=== PATIENT | female | born 1955 | race American Indian/Alaskan Native ===

== ENCOUNTER 2017-12-08 17:54 | Emergency (ER) | payer BC ==
[2017-12-08 17:54] VITALS: BMI 32.9
[2017-12-08 18:22] VITALS: TEMP 99
[2017-12-08] MEDS ORDERED: Levalbuterol 1.25 MG/3 ML Inhal Soln UD IH STA (19:41)
[2017-12-08] MEDS ORDERED: Sodium Chloride 0.9% 1,000 ML IV STA (20:33)
[2017-12-08 21:07] LABS: BASO # 0.03 K/mm3 (0.0-2.0); BASO % 0.3 % (0.0-3.0); EOS # 0.1 (0.0-0.7); EOS % 0.9 % (1.5-5.0); GRAN # 5.66 (1.4-6.5); GRAN % 63.1 % (50.0-68.0); HEMOGLOBIN 12.8 g/dL (12.0-16.0); LYMPH # 2.7 (1.2-3.4); MEAN CELL VOLUME 89.7 fl (80.0-105.0); MEAN CORPUSCULAR HEMOGLOBIN 29.8 pg (25.0-35.0); MEAN CORPUSCULAR HGB CONC 33.2 g/dl (31.0-37.0); MEAN PLATELET VOLUME 8.8 fl (7.0-11.0); MONO # 0.5 (0.1-0.6); MONO % 5.7 % (1.0-6.0); RBC 4.29 10^6/uL (3.5-6.1); RED CELL DISTRIBUTION WIDTH 14.2 % (11.5-14.5)
[2017-12-08 21:13] LABS: ALB/GLOB RATIO 1.4 (1.1-1.8); ALBUMIN 4.3 g/dL (3.0-4.8); ALT/SGPT 51 U/L (7-56); AST/SGOT 42 U/L (14-36); BLOOD UREA NITROGEN 8 mg/dL (7-21); CALCIUM 9.5 mg/dL (8.4-10.5); GFR AFRICAN-AMERICAN > 60; GFR NON-AFRICAN AMERICAN > 60
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
[2017-12-08] MEDS ORDERED: Iohexol 350 MG/100 ML VIAL ONE (22:22)
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
[2017-12-08 23:27] VITALS: BP 144/78; PULSE 78; RESP 18; O2SAT 98
--- NOTE | 2017-12-09 09:42 | RAD ---
HISTORY: cough/fever COMPARISON: 02/14/2016. December 08, 2017. CT thorax for pulmonary embolism TECHNIQUE: Chest PA and lateral FINDINGS: LUNGS: No active pulmonary disease. PLEURA: No significant pleural effusion identified. No pneumothorax apparent. CARDIOVASCULAR: Normal. OSSEOUS STRUCTURES: No significant abnormalities. VISUALIZED UPPER ABDOMEN: Normal. OTHER FINDINGS: Multiple radiopaque foreign bodies within the left breasts. IMPRESSION: No active disease. No significant interval change compared to the prior examination(s).
== END 2017-12-08 23:26 | disposition home or self-care (01) ==
LOC: ED 17:54
DX: J11.1 Influenza due to unidentified influenza virus with other respiratory manifestations (principal); I10 Essential (primary) hypertension
CPT/HCPCS: 71046; 71275; 80053; 85025; 87804; 94640; 96360; 99284; J7040; Q9967

== ENCOUNTER 2018-08-15 12:31 | Emergency (ER) | payer BC ==
[2018-08-15 12:31] VITALS: BMI 32.9
[2018-08-15 12:52] VITALS: TEMP 98
[2018-08-15] MEDS ORDERED: Sodium Chloride 0.9% 1,000 ML IV STA (13:10)
[2018-08-15] MEDS ORDERED: Lidocaine 5% Patch TD STA (13:10)
[2018-08-15 13:16] LABS: PH,URINE 6.5 (4.7-8.0); URINE BILIRUBIN NEGATIVE (NEGATIVE); URINE BLOOD NEGATIVE (NEGATIVE); URINE GLUCOSE (UA) NEGATIVE (NEGATIVE); URINE LEUKOCYTE ESTERASE SMALL Leu/uL (NEGATIVE); URINE PROTEIN NEGATIVE mg/dL (<30 mg/dL); URINE UROBILINOGEN 0.2 E.U./dL (<1 E.U./dL)
[2018-08-15 13:18] LABS: URINE APPEARANCE SL CLOUDY (CLEAR); URINE COLOR YELLOW (YELLOW)
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
[2018-08-15 13:24] LABS: URINE BACTERIA TRACE (NEG); URINE RBC NEGATIVE /hpf (0-2)
[2018-08-15 13:28] LABS: BASO # 0.03 K/mm3 (0.0-2.0); BASO % 0.2 % (0.0-3.0); EOS # 0.1 (0.0-0.7); EOS % 0.7 % (1.5-5.0); GRAN # 7.74 (1.4-6.5); GRAN % 61.6 % (50.0-68.0); HEMOGLOBIN 12.4 g/dL (12.0-16.0); LYMPH # 3.7 (1.2-3.4); LYMPH % 29.5 % (22.0-35.0); MEAN CELL VOLUME 88.5 fl (80.0-105.0); MEAN CORPUSCULAR HEMOGLOBIN 29.1 pg (25.0-35.0); MEAN CORPUSCULAR HGB CONC 32.9 g/dl (31.0-37.0); MEAN PLATELET VOLUME 8.4 fl (7.0-11.0); RBC 4.26 10^6/uL (3.5-6.1); WHITE BLOOD COUNT 12.6 10^3/ul (4.5-11.0)
[2018-08-15 13:37] LABS: ALB/GLOB RATIO 1.3 (1.1-1.8); ALBUMIN 4.2 g/dL (3.0-4.8); ALT/SGPT 25 U/L (7-56); AST/SGOT 29 U/L (14-36); BLOOD UREA NITROGEN 10 mg/dL (7-21); CALCIUM 9.4 mg/dL (8.4-10.5); GFR NON-AFRICAN AMERICAN > 60
[2018-08-15 14:20] VITALS: RESP 18
[2018-08-15 15:25] VITALS: BP 137/80; PULSE 76; O2SAT 100
--- NOTE | 2018-08-15 15:45 | CT ---
Date of service: 08/15/2018 PROCEDURE: CT Abdomen and Pelvis without intravenous contrast HISTORY: Left low back pain, r/o kidney stone COMPARISON: None. TECHNIQUE: Technique. Contrast dose: Radiation dose: Total exam DLP = 869.93 mGy-cm. This CT exam was performed using one or more of the following dose reduction techniques: Automated exposure control, adjustment of the mA and/or kV according to patient size, and/or use of iterative reconstruction technique. FINDINGS: LOWER THORAX: Unremarkable. LIVER: Unremarkable. No gross lesion or ductal dilatation. GALLBLADDER AND BILE DUCTS: Unremarkable. PANCREAS: Unremarkable. No gross lesion or ductal dilatation. SPLEEN: Unremarkable. ADRENALS: Unremarkable. No mass. KIDNEYS AND URETERS: Unremarkable. No hydronephrosis. No solid mass. Nonobstructing stone in the right kidney. No evidence of ureteral stone. Phleboliths in the pelvis VASCULATURE: Unremarkable. No aortic aneurysm. BOWEL: Unremarkable. No obstruction. No gross mural thickening. APPENDIX: Unremarkable. Normal appendix. PERITONEUM: Unremarkable. No free fluid. No free air. LYMPH NODES: Unremarkable. No enlarged lymph nodes. BLADDER: Unremarkable. REPRODUCTIVE: Unremarkable. BONES: No acute fracture. OTHER FINDINGS: None. IMPRESSION: No evidence of urolithiasis. No acute findings
== END 2018-08-15 15:31 | disposition home or self-care (01) ==
LOC: ED 12:31
DX: M54.40 Lumbago with sciatica, unspecified side (principal)
CPT/HCPCS: 74176; 80053; 81001; 85025; 87086; 96361; 96374; 99285; J1885; J7030

== ENCOUNTER 2018-09-17 18:53 | Emergency (ER) | payer BC ==
[2018-09-17] MEDS ORDERED: Oxycodone/Acetaminophen 5/325 mg Tab PO STA (19:32)
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
[2018-09-18 01:04] VITALS: BP 146/82; PULSE 72; RESP 18; TEMP 98.1; O2SAT 100; BMI 33.0
== END 2018-09-17 20:28 | disposition home or self-care (01) ==
LOC: ED 18:53
DX: B02.9 Zoster without complications (principal)

== ENCOUNTER 2019-03-28 08:31 | Observation (INO) | payer BC ==
[2019-03-28] MEDS ORDERED: Morphine 2 mg/ml ISec IVP STA ×2 (09:04→20:09)
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
[2019-03-28] MEDS: Lidocaine 5% Patch TD SCH (09:34)
[2019-03-28] MEDS ORDERED: Morphine 4 mg/ml ISec IVP STA (10:23)
[2019-03-28 13:39] LABS: ALB/GLOB RATIO 1.4 (1.1-1.8); ALBUMIN 4.3 g/dL (3.0-4.8); ALT/SGPT 28 U/L (7-56); AST/SGOT 23 U/L (14-36); BLOOD UREA NITROGEN 14 mg/dL (7-21); CALCIUM 9.3 mg/dL (8.4-10.5); GFR NON-AFRICAN AMERICAN > 60
[2019-03-28 13:44] LABS: BASO # 0.02 K/mm3 (0.0-2.0); BASO % 0.2 % (0.0-3.0); EOS # 0.1 (0.0-0.7); EOS % 0.8 % (1.5-5.0); LYMPH # 3.6 (1.2-3.4); LYMPH % 42.1 % (22.0-35.0); MEAN CELL VOLUME 88.2 fl (80.0-105.0); MEAN CORPUSCULAR HGB CONC 32.8 g/dl (31.0-37.0); MEAN PLATELET VOLUME 8.6 fl (7.0-11.0); MONO # 0.3 (0.1-0.6); MONO % 3.8 % (1.0-6.0); RBC 4.49 10^6/uL (3.5-6.1); RED CELL DISTRIBUTION WIDTH 13.6 % (11.5-14.5); WHITE BLOOD COUNT 8.6 10^3/uL (4.5-11.0)
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
[2019-03-28 20:34] LABS: PH,URINE 6.5 (4.7-8.0); URINE BILIRUBIN NEGATIVE (NEGATIVE); URINE BLOOD SMALL (NEGATIVE); URINE GLUCOSE (UA) NEGATIVE (NEGATIVE); URINE LEUKOCYTE ESTERASE NEGATIVE Leu/uL (NEGATIVE); URINE PROTEIN NEGATIVE mg/dL (<30 mg/dL); URINE UROBILINOGEN 0.2 E.U./dL (<1 E.U./dL)
[2019-03-28 20:36] LABS: URINE APPEARANCE CLEAR (CLEAR); URINE COLOR YELLOW (YELLOW)
[2019-03-28 20:37] LABS: URINE RBC 15 - 20 /hpf (0-2)
[2019-03-28 20:38] LABS: URINE AMORPHOUS SEDIMENT TRACE /hpf; URINE BACTERIA TRACE /hpf
[2019-03-28 21:23] VITALS: BMI 34.1
[2019-03-28] MEDS ORDERED: Pneumococcal 23-Valent Vaccine IM ONE (21:23)
[2019-03-29] MEDS ORDERED: Morphine 2 mg/ml ISec IVP STA ×2 (03:13→05:55)
[2019-03-29] MEDS ORDERED: POLYETHYLENE GLYCOL 3350 17 GM/Dose PACKET PO ONE (05:56)
[2019-03-29] MEDS ORDERED: Pantoprazole 40 mg EC Tab PO SCH (06:00)
[2019-03-29 07:26] LABS: HEMOGLOBIN 12.1 g/dL (12.0-16.0); MEAN CELL VOLUME 88.1 fl (80.0-105.0); MEAN CORPUSCULAR HEMOGLOBIN 28.8 pg (25.0-35.0); MEAN CORPUSCULAR HGB CONC 32.7 g/dl (31.0-37.0); MEAN PLATELET VOLUME 8.5 fl (7.0-11.0); RBC 4.2 10^6/uL (3.5-6.1); RED CELL DISTRIBUTION WIDTH 13.7 % (11.5-14.5); WHITE BLOOD COUNT 12.9 10^3/uL (4.5-11.0)
[2019-03-29 07:43] LABS: BLOOD UREA NITROGEN 20 mg/dL (7-21); CALCIUM 9.2 mg/dL (8.4-10.5); GFR NON-AFRICAN AMERICAN > 60
[2019-03-29 08:21] VITALS: BP 122/75; PULSE 74; RESP 16; TEMP 97.5; O2SAT 97
[2019-03-29] MEDS: Lidocaine 5% Patch TD SCH (09:52)
--- NOTE | 2019-03-29 12:22 | MRI ---
Date of service: 03/29/2019 PROCEDURE: MR LUMBAR SPINE WITHOUT CONTRAST HISTORY: back pain, hx of herniated discs COMPARISON: None available. TECHNIQUE: Multiecho multiplanar sequences were performed through the lumbar spine without the use of intravenous contrast. FINDINGS: There is 5 mm degenerative retrolisthesis of L5 on S1. There is normal lumbar lordosis there is no acute fracture or spondylolysis there are degenerative endplate marrow changes at L2-3 and L4-5. Otherwise, bone marrow signal is within normal limits. 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 The conus medullaris terminates at a normal level and the nerve roots of cauda equina are normal. The paraspinous soft tissues are normal. Imaged portion of the retroperitoneum reveals multiple cortical cysts in the kidneys, the largest in the left upper pole measures 2.4 x 2.0 cm. T12-L1: No disc herniation, spinal canal stenosis or neural foraminal narrowing. L1-2: No disc herniation, spinal canal stenosis or neural foraminal narrowing. L2-3: Central annular tear and diffuse posterior disc bulge without central spinal canal stenosis. Mild bilateral facet arthropathy contribute to mild neural foraminal narrowing. L3-4: Central annular tear and diffuse posterior disc bulge indents the ventral thecal sac and in conjunction with mild ligamentum flavum infolding result in mild spinal canal stenosis. Mild bilateral facet arthropathy contribute to mild neural foraminal narrowing. L4-5: Diffuse posterior disc bulge in conjunction with moderate ligamentum flavum infolding result in mild spinal canal stenosis. Moderate bilateral facet arthropathy contribute to mild neural foraminal narrowing. L5-S1: Central annular tear and diffuse posterior disc bulge indents the ventral thecal sac and in conjunction with mild ligamentum flavum infolding result in mild spinal canal stenosis. Moderate bilateral facet arthropathy contribute to mild neural foraminal narrowing. OTHER FINDINGS: None. IMPRESSION: 1. Multilevel degenerative disc disease superimposed on a congenitally narrow lower lumbar spinal canal, worse at L5-S1 with a diffuse posterior disc bulge, mild spinal canal stenosis and mild neural foraminal narrowing. 2. No acute fracture or spondylolysis. 3. Additional comments as described above.
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
== END 2019-03-29 16:26 | disposition home or self-care (01) ==
LOC: ED 08:31 → ERH 13:43 → 5RSO 16:42
PROVIDERS: ADMIT Internal Medicine; ATTEND Internal Medicine
DX: M51.37 Other intervertebral disc degeneration, lumbosacral region (principal); G51.0 Bell's palsy; I10 Essential (primary) hypertension; Z86.718 Personal history of other venous thrombosis and embolism; Z87.442 Personal history of urinary calculi; X50.9XXA Other and unspecified overexertion or strenuous movements or postures, initial encounter
CPT/HCPCS: 36415; 72100; 72148; 80048; 80053; 81001; 85025; 85027; 96372; 96374; 96375; 96376; 97161; 97530; 99284; G0378; G8978; G8979; J1644; J1885; J2270